=== PATIENT | female | born 1975 | race African-American/Black ===

== ENCOUNTER 2020-03-16 23:10 | Inpatient (IN) | payer MEDICAID ==
[~2020-03-16] VITALS: Ht 177.8 cm; Wt 86.2 kg
--- NOTE | 2020-03-16 23:07 | Emergency Room Report ---
History of Present Illness General Source: Patient Present Illness HPI Patient is a 45-year-old female presents after increased right-sided ankle pain after fall [place] a roller [place]. Patient had injury just prior to arrival. She was brought in by [facility]. She been unable to ambulate after the fall.Injury occurred approximately 30 minutes prior to arrival. Denies any prior medical history. Denies any neck back pain or loss of consciousness. Denies any upper extremity pain. Reports having normal ability to move her toes. Allergies: Coded Allergies: No Known Allergies (Unverified , 03/16/20) Patient History Past Medical History: see triage record Reviewed Nursing Documentation: PMH: Agreed; PSxH: Agreed Review of Systems All Other Systems: negative except mentioned in HPI Physical Exam General Appearance: well appearing, no apparent distress, alert, GCS 15 Head: normocephalic, atraumatic ENT: hearing grossly normal, normal voice Neck: full range of motion, supple Respiratory: chest non-tender, lungs clear, no respiratory distress, speaking full sentences Cardiovascular #1: normal inspection Gastrointestinal: normal inspection, soft Musculoskeletal: other - Deformity to the right ankle normal cap refill and pulses. Neurologic: motor strength/tone normal, old testament professor III-XII nml as tested, oriented x3 , normal gait Psychiatric: mood/affect normal Skin: no rash Medical Decision Making Diagnostic Impression: Primary Impression: Avulsion fracture of ankle Additional Impressions: Dislocated ankle Fibula fracture ER Course Patient presented for ankle pain. Differential diagnosis include was not limited to fracture, dislocation, contusion, sprain among others. Because of complexity of patient's case imaging studies were ordered.X-ray imaging 3 views interpreted by Radiology showed avulsion fracture of the tibia malleolus as well as a distal third ankle fibular fracture with a subluxation of the ankle joint. Patient was placed in a 3 sided splint. She was neurovascular intact after splinting. She is given pain medications prior to attempted reduction. Post procedure x-ray showed some slight improvement in subluxation with continued lateral subluxation. Patient was noted to have inability to ambulate. Patient was given further pain medications. Dr. Roger Moore was contacted for Ortho consult. Dr. Olvin Betancourt was contacted for inpatient management due to panel physician. Labs Test 03/17/20 01:40 White Blood Count 5.5 K/UL (4.8-10.8) Red Blood Count 3.64 M/UL (4.20-5.40) Hemoglobin 11.7 G/DL (12.0-16.0) Hematocrit 36.0 % (37.0-47.0) Mean Corpuscular Volume 99 FL (80-99) Mean Corpuscular Hemoglobin 32.1 PG (27.0-31.0) Mean Corpuscular Hemoglobin Concent 32.4 G/DL (32.0-36.0) Red Cell Distribution Width 12.1 % (11.6-14.8) Platelet Count 253 K/UL (150-450) Mean Platelet Volume 9.0 FL (6.5-10.1) Neutrophils (%) (Auto) 45.7 % (45.0-75.0) Lymphocytes (%) (Auto) 40.6 % (20.0-45.0) Monocytes (%) (Auto) 10.6 % (1.0-10.0) Eosinophils (%) (Auto) 1.8 % (0.0-3.0) Basophils (%) (Auto) 1.4 % (0.0-2.0) Status: unchanged Disposition: ADMITTED INPATIENT Condition: Stable Scripts Ibuprofen* (MOTRIN*) 400 Mg Tablet 400 MG ORAL Q8H, #30 TAB 0 Refills Prov: Konstantin Peoples MD 03/17/20 Oxycodone/Acetaminophen 5-325* (PERCOCET 5-325 MG TABLET*) 1 Each Tablet 1 TAB ORAL Q4H PRN for For Pain, #12 TAB 0 Refills Prov: Konstantin Peoples MD 03/17/20 Konstantin Peoples MD Mar 16, 2020 23:07
[2020-03-16] MEDS ORDERED: Morphine Sulfate 4mg/ml Inj (IV USE ONLY) IVP ONE (23:15)
[2020-03-16 23:45] VITALS: BP 113/69
--- NOTE | 2020-03-16 23:56 | Diagnostic Imaging Report ---
EXAM: XR Right Ankle Complete, 3 or More Views CLINICAL HISTORY: PAIN TECHNIQUE: Frontal, lateral and oblique views of the right ankle. COMPARISON: No relevant prior studies available. IMPRESSION: Displaced oblique/comminuted fracture through the distal fibula. The tibia is medially subluxated out of the ankle joint. Significant soft tissue swelling and joint effusion.
[2020-03-17] MEDS ORDERED: PERCOCET 5-3251 EACH ORAL (00:58)
[2020-03-17] MEDS ORDERED: IBUPROFEN400 MG ORAL (00:58)
--- NOTE | 2020-03-17 01:07 | Diagnostic Imaging Report ---
EXAM: XR Right Ankle Complete, 3 or More Views CLINICAL HISTORY: PAIN TECHNIQUE: Frontal, lateral and oblique views of the right ankle. COMPARISON: 03/16/2020 IMPRESSION: Redemonstration of fibular fracture and ankle dislocation. The ankle subluxation is slightly improved (previous medial clear space measuring 19 mm, now 15 mm).
[2020-03-17] MEDS ORDERED: Ketorolac 30mg Inj IV ONE (01:30)
[2020-03-17] MEDS ORDERED: Morphine Sulfate 2mg/ml Inj(IV/IM USE ONLY) ONE (01:36)
[2020-03-17 01:45] VITALS: BP 116/62
[2020-03-17] MEDS ORDERED: Morphine Sulfate 2mg/ml Inj(IV/IM USE ONLY) IVP ONE (01:45)
[2020-03-17 02:21] LABS: BASOPHILS % (AUTO) 1.4 % (0.0-2.0); EOSINOPHILS % (AUTO) 1.8 % (0.0-3.0); HEMOGLOBIN 11.7 G/DL (12.0-16.0); LYMPHOCYTES % (AUTO) 40.6 % (20.0-45.0); MEAN CORPUSCULAR VOLUME 99 FL (80-99); MONOCYTES % (AUTO) 10.6 % (1.0-10.0); NEUTROPHILS % (AUTO) 45.7 % (45.0-75.0); PLATELET COUNT 253 K/UL (150-450); RED BLOOD COUNT 3.64 M/UL (4.20-5.40); RED CELL DISTRIBUTION WIDTH 12.1 % (11.6-14.8); WHITE BLOOD COUNT 5.5 K/UL (4.8-10.8)
[2020-03-17 02:31] LABS: ANION GAP 11 mmol/L (5-15); BLOOD UREA NITROGEN 8 mg/dL (7-18); CALCIUM 8.7 MG/DL (8.5-10.1); CARBON DIOXIDE 25 MMOL/L (21-32); CHLORIDE 104 MMOL/L (98-107); SODIUM 140 MMOL/L (136-145)
[2020-03-17 02:36] LABS: ALANINE AMINOTRANSFERASE 26 U/L (12-78); ALBUMIN 3.7 G/DL (3.4-5.0); ALBUMIN/GLOBULIN RATIO 0.9 (1.0-2.7); ALKALINE PHOSPHATASE 94 U/L (46-116); ASPARTATE AMINO TRANSFERASE 22 U/L (15-37); BILIRUBIN,TOTAL 0.4 MG/DL (0.2-1.0)
[2020-03-17] MEDS ORDERED: Morphine Sulfate 4mg/ml Inj (IV USE ONLY) IVP PRN (03:00)
[2020-03-17 04:07] VITALS: BP 129/70
[2020-03-17] MEDS ORDERED: D5 1/2NS 1,000 ML IV SCH (06:30)
[2020-03-17 08:00] VITALS: BP 103/61
[2020-03-17] MEDS ORDERED: Heparin 5000 units/ml inj SUBQ SCH (09:00)
[2020-03-17] MEDS: Morphine Sulfate 2mg/ml Inj(IV/IM USE ONLY) IVP PRN ×2 (09:20→13:34)
[2020-03-17] MEDS ORDERED: IBUPROFEN600 M1 ORAL (11:39)
[2020-03-17 12:00] VITALS: BP 129/89
--- NOTE | 2020-03-17 17:30 | History and Physical Report ---
DATE OF ADMISSION: 03/17/2020 TIME SEEN: 9 a.m. CONSULTANTS: 1. Kosta Moore MD. 2. Travis Dailey MD. CHIEF COMPLAINT: Right ankle fracture, status post fall. BRIEF HISTORY: This is a 45-year-old female who lives at home, apparently tripped yesterday and fell and fractured right ankle, came to [place], diagnosed with above. Patient was splinted and admitted to medical floor. Currently, calm in room, slight ankle pain, no complaints. REVIEW OF SYSTEMS: No chest pain. No chest pain. No nausea, vomiting, or diarrhea. PAST MEDICAL HISTORY: Nothing. PAST SURGICAL HISTORY: Umbilical hernia. MEDICATIONS: Include heparin, morphine, Tylenol, ibuprofen, potassium, ketorolac, Zofran. ALLERGIES: Denies. SOCIAL HISTORY: No smoking. No alcohol. No intravenous drug abuse. FAMILY HISTORY: Noncontributory. PHYSICAL EXAMINATION: GENERAL: Calm in bed, oriented x3, no acute distress. VITAL SIGNS: Temperature is 97, pulse 83, respirations 17, blood pressure 103/61. CARDIOVASCULAR: S1, S2. No murmur. LUNGS: Distant and clear. ABDOMEN: Bowel sounds positive. Nontender. Nondistended. EXTREMITIES: No cyanosis, clubbing, or edema. Right ankle in splint. NEUROLOGIC: Patient moves all extremities, slightly weak. LABORATORY AND DIAGNOSTIC DATA: Labs at this time show hemoglobin and hematocrit 11/36, otherwise CBC is normal. BMP shows potassium 3.0, glucose 111, albumin 3.9, otherwise normal. INR is 1.0. ASSESSMENT: 1. Right ankle fracture, status post fall. 2. Anemia. 3. Hypokalemia. PLAN: 1. Replace potassium. 2. PT and dietary evaluation. 3. CBC, BMP in the morning. 4. Pending Ortho evaluation. Olvin Betancourt D.O. DR: YOLIE JOB#: [id number] CC:
--- NOTE | 2020-03-18 08:59 | Discharge Summary ---
Discharge Summary Discharge Summary _ DATE OF ADMISSION: 03/17/2020 DATE OF DISCHARGE: 03/17/2020 DISCHARGED BY: Dr. Betancourt REASON FOR ADMISSION: 45 years old female with no significant past medical history, presented with a right-sided ankle pain after a fall at a roller ring. Patient sustained injury just prior to arrival to ED. Patient was unable to ambulate after the fall. She denied back or neck pain. She denied blackouts or loss of consciousness. She denied any upper extremity pain. She reported having a normal ability to move all her toes. Upon evaluation laboratory work-up revealed no leukocytosis ,hemoglobin 11.7, hematocrit 36. Platelet count 253. Potassium 3.0. X-ray of the right ankle revealed displaced oblique/comminuted fracture through the distal fibula. The tibia was medially subluxated out of the ankle joint. Significant soft tissue swelling and joint effusion. Patient was placed in a 3 sided splint. Patient remained neurovascularly intact after splinting. Patient received analgesic. Post-procedure x-ray revealed re-demonstration of fibular fracture and ankle dislocation. Ankle disc subluxation was slightly improved Patient still was unable to ambulate. Patient was admitted to medical surgical floor for further management. HOSPITAL COURSE: Patient admitted to medical surgical floor. Pain management was addressed. DVT prophylaxis provided. Potassium was replaced. Patient was working with physical therapist. Fall precaution maintained. Patient had nonweightbearing status RLE. Patient was able to perform bed mobility tasks with SBA and transfer with SBA and crutches. Patient was able to ambulate 20 feet with crutches and CGA,. Patient was able to maintain NWB status RLE. Patient was able to ascend/descend 3 stairs using with SBA/CGA, holding crutches on one side and using a rail on the other side to simulate home situation. Patient verbalized desire to go home and will see her primary care provider with referral to orthopedic surgeon. She did not want to wait for orthopedic surgeon evaluation. Patient clinically stabilized and was ready for discharge with right leg nonweightbearing status. Prescription for analgesic provided. Due to rapid and unexpected improvement in patient condition, patient was discharged in 1 day FINAL DIAGNOSES: Right ankle fracture Status post fall Hypokalemia DISCHARGE MEDICATIONS: See Medication Reconciliation list. DISCHARGE INSTRUCTIONS: Patient was discharged home. Follow-up with a primary care provider within few days for orthopedic surgery referral consult and further recommendations. Continue nonweightbearing status right lower extremity. I have been assigned to dictate discharge summary for this account. I was not involved in the patient's management. Kaitlyn Castano NP Mar 18, 2020 08:59
== END 2020-03-17 15:12 | disposition home or self-care (01) | DRG 342 ==
LOC: EDBD 23:10 → EMR 23:30 → 4E 03-17 02:16 → EDBEDREQ 03-17 02:52
PROC: 2W3QX1Z Immobilization of Right Lower Leg using Splint (ICD-10-PCS; principal; 2020-03-17)
DX: S82.61XA Displaced fracture of lateral malleolus of right fibula, initial encounter for closed fracture (principal); S93.04XA Dislocation of right ankle joint, initial encounter; Y93.51 Activity, roller skating (inline) and skateboarding; Y93.89 Activity, other specified; Y92.331 Roller skating rink as the place of occurrence of the external cause; D64.9 Anemia, unspecified; E87.6 Hypokalemia
CPT/HCPCS: 36415; 80053; 84703; 85025; 85610; 85730; 96374; 96375; 99285; J2405; J8499